=== PATIENT | male | born 1935 | race Caucasian/White ===

== ENCOUNTER → 2016-10-07 | Outpatient (CLI) | payer MEDICARE, OTHER ==
[~2016-10-07] MED LIST: ASPIRIN LO-DOSE81 MG PO; COMBIVENT RESPIM4 GM INH; MULTI VITAMIN1 EACH PO; NORCO 5-325 MG1 TAB PO; OMEPRAZOLE40 MG PO; PRESERVISION A1 EAC2 PO; ZOCOR40 MG PO
[2016-10-07 14:57] LABS: HEMOGLOBIN 13.2 g/dL (11.0-16.0); MCH 30.8 pg (27.0-34.0); MCV 93.5 fl (83.0-98.0); MPV 9.8 fl (9.4-12.4); PLATELET COUNT 166 K/uL (150-450); RBC 4.28 M/uL (3.50-5.50); RDW-CV 14.8 % (11.9-14.6)
[2016-10-07 14:58] LABS: WBC 16.7 K/uL (4.0-11.0)
[2016-10-07 15:04] LABS: PROTIME 10.5 SECONDS (9.8-11.4)
[2016-10-07 15:10] LABS: ALBUMIN 3.8 gm/dL (3.5-5.0); ANION GAP 10.4 (10.0-19.0); CALCIUM 8.3 mg/dL (8.5-10.5); CREATININE 1.2 mg/dL (0.6-1.3); PHOSPHORUS 2.7 mg/dL (2.5-4.9); POTASSIUM 4.4 mMol/L (3.7-5.1)
[2016-10-07 15:21] LABS: ABSOLUTE NEUTROPHIL CT (ANC) 5.2 K/uL (1.4-9.0); LYMPHOCYTE # 11.2 K/uL (0.8-4.0); LYMPHOCYTE % 67 %; MONOCYTE # 0.3 K/uL (0.0-1.0); SEGMENTED NEUTROPHIL # 5.2 K/uL (1.4-9.0); SEGMENTED NEUTROPHIL % 31 %
== END | disposition disaster alternative care site (69) ==
LOC: GOPD 10-04
PROVIDERS: Family Medicine
DX: M51.36 Other intervertebral disc degeneration, lumbar region (principal); M54.9 Dorsalgia, unspecified; D69.6 Thrombocytopenia, unspecified
CPT/HCPCS: J1040